=== PATIENT | female | born 1955 | race Hispanic/Latino ===

== ENCOUNTER 2020-01-17 12:20 | Outpatient (CLI) | payer MEDICARE, OTHER ==
--- NOTE | 2020-01-17 13:24 | BD ---
BONE DENSITOMETRY USING DEXA: Date: 01/17/2020 HISTORY: Postmenopausal screening for osteoporosis. FINDINGS: Lumbar Spine: BMD (g/cm2) L1 0.894 T-Score: -0.9 Z-Score: 0.7 L2 0.967 T-Score: -0.6 Z-Score: 1.2 L3 1.006 T-Score: -0.7 Z-Score: 1.1 L4 0.988 T-Score: -0.7 Z-Score: 1.2 L1-L4 0.965 T-Score: -0.7 Z-Score: 1.0 Femoral Neck: 0.635 T-Score: -1.9 Z-Score: -0.6 Total Femur: 0.857 T-Score: -0.7 Z-Score: 0.3 The 10 year fracture risk for a major osteoporotic fracture is 5.6% and for a hip fracture is 0.8%. IMPRESSION: Osteopenia. POS: AH
--- NOTE | 2020-01-17 13:52 | MMO ---
Bilateral MAMMO Bilat Screen [facility]. CLINICAL HISTORY: Patient is 64 years old and is seen for screening. The patient has no family history of breast cancer. The patient has no personal history of cancer. VIEWS: The views performed were: bilateral craniocaudal with tomosynthesis and bilateral mediolateral oblique with tomosynthesis. FILMS COMPARED: The present examination has been compared to prior imaging studies performed at [facility] on 07/05/2016, and at [facility] on 05/21/2011, 06/03/2014 and 07/02/2015. This study has been interpreted with the assistance of computer-aided detection. MAMMOGRAM FINDINGS: There are scattered fibroglandular densities. There are stable benign appearing calcifications seen in both breasts. There are no suspicious masses, suspicious calcifications, or new areas of architectural distortion. IMPRESSION: THERE IS NO MAMMOGRAPHIC EVIDENCE OF MALIGNANCY. A ROUTINE FOLLOW-UP MAMMOGRAM IN 1 YEAR IS RECOMMENDED. THE RESULTS OF THIS EXAM WERE SENT TO THE PATIENT. ACR BI-RADS Category 2 - Benign finding MAMMOGRAPHY NOTE: 1. A negative mammogram report should not delay a biopsy if a dominant of clinically suspicious mass is present. 2. Approximately 10% to 15% of breast cancers are not detected by mammography. 3. Adenosis and dense breasts may obscure an underlying neoplasm. Reported by: LISA WHITEHEAD MD Electonically Signed: [id number]
== END 2020-01-17 12:21 | disposition home or self-care (01) ==
LOC: BICMAMMO 12:20
PROVIDERS: ATTEND Internal Medicine
DX: Z12.31 Encounter for screening mammogram for malignant neoplasm of breast (principal); Z13.820 Encounter for screening for osteoporosis; M85.859 Other specified disorders of bone density and structure, unspecified thigh
CPT/HCPCS: 77063; 77067; 77080

== ENCOUNTER 2021-06-08 13:22 | Outpatient (CLI) | payer MEDICARE | END 2021-06-08 13:23 | disposition home or self-care (01) | LOC: BICMAMMO 13:22 | PROVIDERS: ATTEND Internal Medicine | DX: Z12.31 Encounter for screening mammogram for malignant neoplasm of breast (principal) | CPT/HCPCS: 77063; 77067 ==

== ENCOUNTER 2023-03-16 09:37 | Outpatient (CLI) | payer MEDICARE | END 2023-03-16 09:38 | disposition home or self-care (01) | LOC: RAD 09:37 | PROVIDERS: ATTEND Internal Medicine | DX: S49.91XA Unspecified injury of right shoulder and upper arm, initial encounter (principal); M54.9 Dorsalgia, unspecified; M47.816 Spondylosis without myelopathy or radiculopathy, lumbar region | CPT/HCPCS: 72100 ==

== ENCOUNTER 2023-05-23 13:46 | Outpatient (CLI) | payer MEDICARE | END 2023-05-23 13:47 | disposition home or self-care (01) | LOC: SCSMRI 13:46 | PROVIDERS: ATTEND Internal Medicine | DX: R51.9 Headache, unspecified (principal); Z82.3 Family history of stroke; R90.89 Other abnormal findings on diagnostic imaging of central nervous system | CPT/HCPCS: 70551 ==